=== PATIENT | female | born 1945 | race Caucasian/White ===

== ENCOUNTER → 2016-10-18 | Outpatient (CLI) | payer MEDICARE, OTHER ==
--- NOTE | 2016-10-19 14:54 | MM ---
Reason for exam: screening (asymptomatic). Last mammogram was performed 2 years and 7 months ago. History: Patient is postmenopausal. Benign left mammotome panel of the left breast, March 02, 2009. Excisional biopsy of the left breast, 1989. Excisional biopsy of the left breast, 1974. Physical Findings: A clinical breast exam by your physician is recommended on an annual basis and results should be correlated with mammographic findings. MG 3D Screening Mammo W/Cad Bilateral CC and MLO view(s) were taken. Prior study comparison: March 29, 2014, bilateral MG screening mammo w CAD. February 16, 2013, bilateral digital screening mammo w/CAD. January 24, 2011, CAD bilateral diagnostic mammogram. January 20, 2010, bilateral digital screening mammogram. There are scattered fibroglandular densities. Previous mammotome biopsy in the left breast. No significant changes when compared with prior studies. ASSESSMENT: Negative, BI-RAD 1 RECOMMENDATION: Routine screening mammogram of both breasts in 1 year.
== END | disposition home or self-care (01) ==
LOC: RADMAMWWP 11:19
PROVIDERS: ATTEND Family Medicine
DX: Z12.31 Encounter for screening mammogram for malignant neoplasm of breast (principal)
CPT/HCPCS: 77063; G0202

== ENCOUNTER → 2017-04-15 | Outpatient (CLI) | payer MEDICARE, OTHER ==
[2017-04-15 13:10] LABS: Partial Thromboplastin Time 25.5 sec (22.0-30.0); Prothrombin Time 10.3 sec (9.0-12.0)
--- NOTE | 2017-04-15 13:10 | XR ---
EXAMINATION TYPE: XR chest 2V DATE OF EXAM: 04/15/2017 COMPARISON: NONE HISTORY: Presurgical study. TECHNIQUE: Frontal and lateral views of the chest are obtained. FINDINGS: There is no focal air space opacity, pleural effusion, or pneumothorax seen. The cardiac silhouette size is within normal limits. The osseous structures are intact. IMPRESSION: No acute cardiopulmonary process.
[2017-04-15 13:16] LABS: CHCM 34.7; HCT 44.3 % (34.0-46.0); HDW 2.87; HGB 15.5 gm/dL (11.4-16.0); MCH 30.5 pg (25.0-35.0); MCV 87.1 fL (80.0-100.0); Mean Platelet Volume 6.5; RBC 5.08 m/uL (3.80-5.40); WBC 5.9 k/uL (3.8-10.6)
[2017-04-15 13:19] LABS: ALT 33 U/L (9-52); AST 21 U/L (14-36); Alkaline Phosphatase 76 U/L (38-126); Anion Gap 8 mmol/L; Blood Urea Nitrogen 19 mg/dL (7-17); Calcium 9.2 mg/dL (8.4-10.2); Carbon Dioxide 28 mmol/L (22-30); Chloride 106 mmol/L (98-107); Glucose 105 mg/dL (74-99); Non-African American GFR(MDRD) >60 (>60 ml/min/1.73 sqM); Potassium 4.4 mmol/L (3.5-5.1); Sodium 142 mmol/L (137-145); Total Bilirubin 0.9 mg/dL (0.2-1.3); Total Protein 6.8 g/dL (6.3-8.2)
[2017-04-15 13:36] LABS: Troponin I <0.012 ng/mL (0.000-0.034)
== END | disposition home or self-care (01) ==
LOC: LABWHC1 12:12
PROVIDERS: ATTEND Family Medicine
DX: Z01.818 Encounter for other preprocedural examination (principal); R94.31 Abnormal electrocardiogram [ECG] [EKG]
CPT/HCPCS: 36415; 71020; 80053; 82552; 82553; 84484; 85027; 85610; 85730

== ENCOUNTER → 2017-04-22 | Outpatient (CLI) | payer MEDICARE, OTHER ==
--- NOTE | 2017-04-22 12:32 | P.STRESS ---
- Stress Test Note Stress Test Results/Findings: Exam Performed: NM stress lexiscan cardiolite Exam Date: 04/22/17 Height: 5 ft 4 in Weight: 72.575 kg Protocol: N/A Stage: N/A Duration of Exercise: N/A Resting Heart Rate: 69 Resting Blood Pressure: 114/71 Maximum Achieved Heart Rate: 105 Maximum Achieved Blood Pressure: 127/74 85% PMHR: N/A 100% PMHR: N/A METS: N/A Technologist Comment: Stress Test Results/Findings: Baseline rhythm is sinus mechanism, right bundle branch block. Patient received injection of Lexiscan, EKG monitoring showed no acute changes. Cardiolite was injected per protocol. Impression: 1. Nondiagnostic EKG stress test. 2. Nuclear images will be reported separately.
--- NOTE | 2017-04-22 12:37 | NM ---
EXAMINATION TYPE: NM stress lexiscan cardiolite DATE OF EXAM: 04/22/2017 COMPARISON: NONE HISTORY: Preknee surgery study. History of hypercholesterolemia and family history of heart attack pe r patient. TECHNIQUE: After the intravenous administration of 10.77 mCi Tc 99m Sestamibi - Cardiolite resting S PECT images acquired 45 minutes post injection. The patient received 0.4mg Lexiscan, 27.5 mCi Tc 99m Sestamibi - Stress images obtained [address] injection FINDINGS: Review of stress and rest SPECT images demonstrates no distinct perfusion abnormality. Gated analysi s shows normal wall motion with an estimated left ventricular ejection fraction of 61 %. IMPRESSION: No scintigraphic evidence for reversible ischemia.
== END ==
LOC: RADNMMAIN 08:53
PROVIDERS: ATTEND Family Medicine
DX: Z01.818 Encounter for other preprocedural examination (principal); R94.31 Abnormal electrocardiogram [ECG] [EKG]
CPT/HCPCS: 93017; 78452; A9500

== ENCOUNTER → 2017-10-21 | Outpatient (CLI) | payer MEDICARE, OTHER ==
--- NOTE | 2017-10-22 09:15 | MM ---
Reason for exam: screening (asymptomatic). Last mammogram was performed 1 year ago. History: Patient is postmenopausal. Benign left mammotome panel of the left breast, March 02, 2009. Excisional biopsy of the left breast, 1989. Excisional biopsy of the left breast, 1974. Physical Findings: A clinical breast exam by your physician is recommended on an annual basis and results should be correlated with mammographic findings. MG 3D Screening Mammo W/Cad Bilateral CC and MLO view(s) were taken. Prior study comparison: October 18, 2016, bilateral MG 3d screening mammo w/cad. March 29, 2014, bilateral MG screening mammo w CAD. There are scattered fibroglandular densities. Stable benign calcifications. There is no discrete abnormality. No significant changes when compared with prior studies. ASSESSMENT: Benign, BI-RAD 2 RECOMMENDATION: Routine screening mammogram of both breasts in 1 year.
== END | disposition home or self-care (01) ==
LOC: RADMAMWWP 08:46
PROVIDERS: ATTEND Family Medicine
DX: Z12.31 Encounter for screening mammogram for malignant neoplasm of breast (principal)
CPT/HCPCS: 77063; 77067

== ENCOUNTER → 2018-02-07 | Outpatient (CLI) | payer MEDICARE, OTHER ==
[~2018-02-07] MED LIST: DENOSUMAB 60 MG/ML 1 ML SYRINGE SQ ONE
[2018-02-07 10:57] VITALS: BP 129/76; PULSE 73; RESP 16; TEMP 98.1
== END | disposition home or self-care (01) ==
LOC: PROCWHC3 10:47
PROVIDERS: ATTEND Family Medicine
DX: M81.0 Age-related osteoporosis without current pathological fracture (principal)
CPT/HCPCS: 96372; J0897

== ENCOUNTER → 2019-03-27 | Outpatient (CLI) | payer MEDICARE, OTHER ==
[~2019-03-27] MED LIST changes: +DENOSUMAB 60 MG/ML 1 ML SYRINGE SQ NR; -DENOSUMAB 60 MG/ML 1 ML SYRINGE SQ ONE
[2019-03-27 12:09] VITALS: BP 137/79; PULSE 77; RESP 16; TEMP 97.7
== END | disposition home or self-care (01) ==
LOC: PROCWHC3 12:02
PROVIDERS: ATTEND Family Medicine
DX: M81.0 Age-related osteoporosis without current pathological fracture (principal)
CPT/HCPCS: 96372; J0897

== ENCOUNTER → 2019-04-24 | Outpatient (CLI) | payer MEDICARE, OTHER ==
--- NOTE | 2019-04-27 11:38 | MM ---
Reason for exam: screening (asymptomatic). Last mammogram was performed 1 year and 6 months ago. History: Patient is postmenopausal. Benign left mammotome panel of the left breast, March 02, 2009. Excisional biopsy of the left breast, 1989. Excisional biopsy of the left breast, 1974. Physical Findings: A clinical breast exam by your physician is recommended on an annual basis and results should be correlated with mammographic findings. MG 3D Screening Mammo W/Cad Bilateral CC and MLO view(s) were taken. Prior study comparison: October 21, 2017, bilateral MG 3d screening mammo w/cad. October 18, 2016, bilateral MG 3d screening mammo w/cad. There are scattered fibroglandular densities. Previous mammotome biopsy in the left breast. No significant changes when compared with prior studies. ASSESSMENT: Negative, BI-RAD 1 RECOMMENDATION: Routine screening mammogram of both breasts in 1 year.
== END | disposition home or self-care (01) ==
LOC: RADMAMWWP 13:15
PROVIDERS: ATTEND Family Medicine
DX: Z12.31 Encounter for screening mammogram for malignant neoplasm of breast (principal)
CPT/HCPCS: 77063; 77067

== ENCOUNTER → 2019-10-05 | Outpatient (CLI) | payer MEDICARE, OTHER ==
[~2019-10-05] MED LIST changes: -DENOSUMAB 60 MG/ML 1 ML SYRINGE SQ NR; +DENOSUMAB 60 MG/ML 1 ML SYRINGE SQ ONE
[2019-10-05 12:50] VITALS: BP 146/82; PULSE 64; RESP 16; TEMP 97.5
== END | disposition home or self-care (01) ==
LOC: PROCWHC3 12:42
PROVIDERS: ATTEND Family Medicine
DX: M81.0 Age-related osteoporosis without current pathological fracture (principal)
CPT/HCPCS: 96372; J0897

== ENCOUNTER → 2020-10-14 | Outpatient (CLI) | payer MEDICARE, OTHER ==
[~2020-10-14] MED LIST changes: +DENOSUMAB 60 MG/ML 1 ML SYRINGE SQ NR; -DENOSUMAB 60 MG/ML 1 ML SYRINGE SQ ONE
[2020-10-14 11:38] VITALS: BP 118/74; PULSE 81; RESP 16; TEMP 98.4
== END | disposition home or self-care (01) ==
LOC: PROCWHC3 11:22
PROVIDERS: ATTEND Family Medicine
DX: M81.0 Age-related osteoporosis without current pathological fracture (principal)
CPT/HCPCS: 96372; J0897

== ENCOUNTER → 2020-12-27 | Outpatient (CLI) | payer MEDICARE, OTHER ==
--- NOTE | 2020-12-28 13:42 | MM ---
Reason for exam: screening (asymptomatic). Last mammogram was performed 1 year and 8 months ago. History: Patient is postmenopausal. Benign left mammotome panel of the left breast, March 02, 2009. Excisional biopsy of the left breast, 1989. Excisional biopsy of the left breast, 1974. Physical Findings: A clinical breast exam by your physician is recommended on an annual basis and results should be correlated with mammographic findings. MG 3D Screening Mammo W/Cad Bilateral CC and MLO view(s) were taken. Prior study comparison: April 24, 2019, bilateral MG 3d screening mammo w/cad. October 21, 2017, bilateral MG 3d screening mammo w/cad. There are scattered fibroglandular densities. Previous mammotome biopsy in the left breast. No significant changes when compared with prior studies. ASSESSMENT: Benign, BI-RAD 2 RECOMMENDATION: Routine screening mammogram of both breasts in 1 year.
== END ==
LOC: RADMAMWWP 14:42
PROVIDERS: ATTEND Family Medicine
DX: Z12.31 Encounter for screening mammogram for malignant neoplasm of breast (principal); Z78.0 Asymptomatic menopausal state
CPT/HCPCS: 77063; 77067

== ENCOUNTER → 2021-05-16 | Outpatient (CLI) | payer MEDICARE, OTHER ==
[2021-05-16 12:43] VITALS: BP 107/70; PULSE 82; RESP 16; TEMP 98.1
== END | disposition home or self-care (01) ==
LOC: PROCWHC3 12:30
PROVIDERS: ATTEND Family Medicine
DX: M81.0 Age-related osteoporosis without current pathological fracture (principal)
CPT/HCPCS: 96372; J0897

== ENCOUNTER → 2021-06-28 | Outpatient (CLI) | payer MEDICARE, OTHER ==
--- NOTE | 2021-06-28 21:13 | BD ---
EXAMINATION TYPE: Axial Bone Density DATE OF EXAM: 06/28/2021 COMPARISON: 2014 CLINICAL HISTORY: Postmenopausal screening Height: 63 Weight: 148.0 FRAX RISK QUESTIONS: Alcohol (3 or more units per day): no Family History (Parent hip fracture): no Glucocorticoids (More than 3mos): no (Ex: prednisone, prednisolone, methylprednisolone, dexamethasone, and hydrocortisone). History of Fracture in Adulthood: no Secondary Osteoporosis: 1. Type 1 Diabetes: no 2. Hyperthyroidism: no 3. Menopause before 45: no 4. Malnutrition: no 5. Chronic liver disease: no Rheumatoid Arthritis: no Current Tobacco Use: no RISK FACTORS HISTORY OF: Surgery to Spine/Hip(right/left)/Wrist (right/left): no Family History of Osteoporosis: no Active: yes Diet low in dairy products/other sources of calcium: no Postmenopausal woman: yes Lost more than 2 inches in height since high school: no MEDICATIONS: synthroid- Osteoporosis Medications: Prolia How Lon years Additional Medications: meds for lymphoma, vitamins Additional History: EXAM MEASUREMENTS: Bone mineral densitometry was performed using the [employer]. Bone mineral density as measured about the Lumbar spine is: ----- L1-L4(G/cm2): 1.017 T Score Values are as follows: ----- L2: -2.3 ----- L3: -0.9 ----- L4: -1.0 ----- L1-L4: -1.4 Bone mineral density has: increased 5.2 % since study of: 10.27.2014 Bone mineral density about the R hip (g/cm2): 0.847 Bone mineral density about the L hip (g/cm2): 0.827 T Score values are as follows: -----R Neck: -1.4 -----L Neck: -1.5 -----R Total: -1.1 -----L Total: -1.4 Bone mineral density has: decreased -2.8 % since study of: 10.27.2014 IMPRESSION: Osteopenia (T Score between -2.5 and -1). There is slightly increased risk of fracture and the patient may be considered for treatment. Re-Screen 2-5 years. NOTE: T-SCORE=SD OF THE YOUNG ADULT MEAN.
== END | disposition home or self-care (01) ==
LOC: RADBDWWP 14:20
PROVIDERS: ATTEND Family Medicine
DX: Z13.820 Encounter for screening for osteoporosis (principal); M85.89 Other specified disorders of bone density and structure, multiple sites
CPT/HCPCS: 77080

== ENCOUNTER → 2022-01-02 | Outpatient (CLI) | payer MEDICARE, OTHER ==
[~2022-01-02] MED LIST changes: -DENOSUMAB 60 MG/ML 1 ML SYRINGE SQ NR; +TIXAGEVIMAB/CILGAVIMAB (EUA) 300 MG/3 ML COMBO.PKG IM NR
[2022-01-02 13:37] VITALS: PULSE 62; RESP 16; TEMP 98.1
[2022-01-02 14:51] VITALS: BP 142/78
== END ==
LOC: PROCWHC3 13:05
PROVIDERS: ATTEND Internal Medicine Hematology & Oncology
DX: C85.98 Non-Hodgkin lymphoma, unspecified, lymph nodes of multiple sites (principal); Z87.891 Personal history of nicotine dependence
CPT/HCPCS: Q0220; M0220

== ENCOUNTER 2022-01-11 07:41 | Inpatient (IN) | payer MEDICARE, OTHER ==
--- NOTE | 2022-01-11 08:32 | ED ---
General Adult HPI - General Chief complaint: Skin/Abscess/Foreign Body Stated complaint: post dog bite/infection Time Seen by Provider: 01/11/22 07:52 Source: patient, RN notes reviewed, old records reviewed Mode of arrival: ambulatory Limitations: no limitations - History of Present Illness Initial comments: Patient is a 76-year-old female with past medical history remarkable for lymphoma currently on maintenance therapy presents emergency Department complaining of worsening infection secondary to dog bite. Patient was seen in the urgent care on Saturday following a dog bite. Patient states that she was walking with a group of people picking up trash along the river [place] when a pitbull attack the smaller dog. She attempted to intervene and grabbed this point, which subsequently bit her on the left distal forearm. She states she presented to an outpatient urgent care were she received tetanus prophylaxis. She is uncertain regarding rabies, however believes that since the dog is domesticated and was taken by the national van owner operator to another hospital she does not believe that she requires rabies prophylaxis and thinks the dog is up-to-date on vaccinations. She tended to call the hospitalist to check, however it would not divulge private information. She believes it went to one of the [facility] for recovery. Patient states that since Saturday, when she was placed on Augmentin she has noticed slightly worsening discharge from the wound but some erythema spreading up her arm. She has 1 puncture wound as well as an abrasion. States it is not very painful. Has full range of motion of her arm, wrist, hand. No sensory deficits. Denies any fevers, chills, sick contacts. Has no systemic signs of infection. His no other acute complaint at this time. Believes that she may require IV antibiotics. - Related Data Home Medications Medication Instructions Recorded Confirmed Levothyroxine Sodium [Synthroid] 50 mcg PO DAILY 01/09/16 01/11/22 Omeprazole 20 mg PO Q48H 01/09/16 01/11/22 Denosumab [Prolia] 60 mg SQ Q180D 03/14/16 01/11/22 Amoxic-Pot Clav 875-125Mg 1 tab PO Q12HR 01/11/22 01/11/22 [Augmentin 875-125] Aspirin EC [Ecotrin Low Dose] 81 mg PO DAILY 01/11/22 01/11/22 Biotin 5 mg PO DAILY 01/11/22 01/11/22 Clobetasol Propionate [Clobex .05% 1 applic TOPICAL Q96H 01/11/22 01/11/22 Shampoo] Magnesium Oxide 400 mg PO DAILY 01/11/22 01/11/22 Allergies Allergy/AdvReac Type Severity Reaction Status Date / Time vancomycin Allergy Rash/Hives Verified 01/11/22 09:20 Review of Systems ROS Statement: Those systems with pertinent positive or pertinent negative responses have been documented in the HPI. Review of Systems: CONST: Denies fever EYES: Denies blurry vision ENT: Denies nasal congestion C/V: Denies Chest pain RESP: Denies shortness of breath GI: Denies abdominal pain : Denies dysuria SKIN: Endorses dog bite to the left wrist with spreading erythema. MSK: Denies joint pain. NEURO: Denies headache ROS Other: All systems not noted in ROS Statement are negative. Past Medical History Past Medical History: Cancer, Hyperlipidemia, Thyroid Disorder Additional Past Medical History / Comment(s): kidney stone, lymphoma. History of Any Multi-Drug Resistant Organisms: None Reported Past Surgical History: Section, Orthopedic Surgery, Tubal Ligation Additional Past Surgical History / Comment(s): 2017 Right knee replacement. Follicular lymphoma Past Anesthesia/Blood Transfusion Reactions: No Reported Reaction Past Psychological History: No Psychological Hx Reported Smoking Status: Former smoker Past Alcohol Use History: None Reported Past Drug Use History: None Reported - Past Family History Mother Family Medical History: Cancer Additional Family Medical History / Comment(s): Uterine cancer. General Exam - General Exam Comments Initial Comments: General: Appears in no acute distress. HEAD: Normal with no signs of head trauma. EYES: PERRLA, EOMI, conjunctiva normal, no discharge. ENT: Hearing grossly intact, normal oropharynx. RESPIRATORY: Clear breath sounds bilaterally. No wheezes, rales, or rhonchi. C/V: Regular rate and rhythm. S1 and S2 auscultated, no edema, peripheral pulses 2+ and intact throughout ABD: Abd is soft, nontender, nondistended EXT: Normal range of motion, no obvious deformity SKIN: Patient has a small puncture wound to the anterior aspect of the left distal forearm on the lateral part as well as an abrasion that is approximately the size of a [place] half dollar. Mild bloody mixed with somewhat purulent discharge from both wounds. Spreading of erythema from around the sides proximally up the lateral and anterior aspect of her left forearm. NEURO: Alert and oriented 4. No focal sensory or strength deficits. Full range of motion and neuro vascularly intact distal to the wound. Limitations: no limitations Course Vital Signs 01/11/22 01/11/22 01/11/22 07:45 12:00 15:13 Temperature 97.9 F Pulse Rate 74 59 L 62 Respiratory 18 18 18 Rate Blood Pressure 159/80 128/70 130/68 O2 Sat by Pulse 98 96 96 Oximetry Medical Decision Making - Medical Decision Making Based on the patient's presentation and exam, I believe she is having failed outpatient management of a dog bite. Patient already received tetanus prophylaxis on Saturday upon initial evaluation. She also started on Augmentin outpatient which does not seem to be improving symptoms. She is on maintenance therapy for lymphoma. Uncertain the rabies vaccination status of the dog, however it was domesticated. She does not have the contact information for the national van owner operator. She does know it was sent to [facility] [facility]. She has no other acute complaints at this time. Therefore patient will be admitted for failed outpatient therapy for a dog bite. We will attempt to confirm vaccination status for rabies for the dog. We did recheck her to [facility] which is located in [place], however they were unable to confirm or deny if the dog was present as we are uncertain who the national van owner operator as well as the dog's name. They state it is a HIPPA violation. Patient was started on IV clindamycin and levofloxacin. Wound, blood cultures will be obtained. Basic labs will be obtained. She was in agreement this plan. I will consult her oncologist, Dr. Harris as she is due for maintenance infusion of her medication. Patient's laboratory studies are unremarkable. Patient's x-ray shows soft tissue swelling. On reevaluation, vital signs remained within normal limits and stable. I updated her of results for imaging. Believe it is best to admit the patient for IV antibiotics. She was in agreement this plan. I did discuss with her that I attempted to obtain a be status of the dog, and she states she will attempt to continue to contact the patient's own to find out. She is low suspicion at this time, as the patient is a domesticated dog, and only bit the patient when she intervened to help prevent the dog from being attacked by pitbulls. I spoke with the admitting team under Dr. aguirre who accepted the patient. He requested I consult infectious disease which was done. Patient was therefore a dmitted in stable condition. - Lab Data Result diagrams: 01/11/22 08:53 01/11/22 08:53 Lab Results 01/11/22 01/11/22 Range/Units 08:53 08:53 WBC 4.2 (3.8-10.6) k/uL RBC 4.74 (3.80-5.40) m/uL Hgb 14.3 (11.4-16.0) gm/dL Hct 42.1 (34.0-46.0) % MCV 88.9 (80.0-100.0) fL MCH 30.2 (25.0-35.0) pg MCHC 33.9 (31.0-37.0) g/dL RDW 14.6 (11.5-15.5) % Plt Count 124 L (150-450) k/uL MPV 7.7 Neutrophils % 71 % Lymphocytes % 9 % Monocytes % 10 % Eosinophils % 8 % Basophils % 1 % Neutrophils # 3.0 (1.3-7.7) k/uL Lymphocytes # 0.4 L (1.0-4.8) k/uL Monocytes # 0.4 (0-1.0) k/uL Eosinophils # 0.3 (0-0.7) k/uL Basophils # 0.0 (0-0.2) k/uL Sodium 138 (137-145) mmol/L Potassium 3.9 (3.5-5.1) mmol/L Chloride 109 H (98-107) mmol/L Carbon Dioxide 21 L (22-30) mmol/L Anion Gap 8 mmol/L BUN 22 H (7-17) mg/dL Creatinine 0.71 (0.52-1.04) mg/dL Est GFR (CKD-EPI)AfAm >90 (>60 ml/min/1.73 sqM) Est GFR (CKD-EPI)NonAf 83 (>60 ml/min/1.73 sqM) Glucose 105 H (74-99) mg/dL Calcium 8.6 (8.4-10.2) mg/dL Total Bilirubin 0.8 (0.2-1.3) mg/dL AST 27 (14-36) U/L ALT 23 (4-34) U/L Alkaline Phosphatase 89 (38-126) U/L Total Protein 5.9 L (6.3-8.2) g/dL Albumin 3.5 (3.5-5.0) g/dL Disposition Clinical Impression: Dog bite, Cellulitis Disposition: ADMITTED IP TO THIS [facility] Condition: Stable
[2022-01-11 09:22] LABS: ALT 23 U/L (4-34); AST 27 U/L (14-36); African American GFR (CKD) >90 (>60 ml/min/1.73 sqM); Albumin 3.5 g/dL (3.5-5.0); Alkaline Phosphatase 89 U/L (38-126); Anion Gap 8 mmol/L; Blood Urea Nitrogen 22 mg/dL (7-17); Calcium 8.6 mg/dL (8.4-10.2); Carbon Dioxide 21 mmol/L (22-30); Chloride 109 mmol/L (98-107); Glucose 105 mg/dL (74-99); Non-African American GFR(CKD) 83 (>60 ml/min/1.73 sqM); Potassium 3.9 mmol/L (3.5-5.1); Sodium 138 mmol/L (137-145); Total Bilirubin 0.8 mg/dL (0.2-1.3); Total Protein 5.9 g/dL (6.3-8.2)
[2022-01-11] MEDS ORDERED: NALOXONE 0.4 MG/ML 1 ML VIAL IV PRN (09:25)
--- NOTE | 2022-01-11 09:27 | XR ---
EXAMINATION TYPE: XR forearm LT DATE OF EXAM: 01/11/2022 COMPARISON: NONE HISTORY: 76-year-old female with dogbite distal left arm, pain TECHNIQUE: 2 views FINDINGS: Distal soft tissue swelling is present. No retained radiopaque foreign body. No underlying acute frac ture. IMPRESSION: Distal soft tissue swelling. No acute osseous abnormality seen.
[2022-01-11 09:29] LABS: Basophils % (A) 1 %; Eosinophils # (A) 0.3 k/uL (0-0.7); Eosinophils % (A) 8 %; HCT 42.1 % (34.0-46.0); HGB 14.3 gm/dL (11.4-16.0); Lymphocytes # (A) 0.4 k/uL (1.0-4.8); Lymphocytes % (A) 9 %; MCH 30.2 pg (25.0-35.0); MCHC 33.9 g/dL (31.0-37.0); MCV 88.9 fL (80.0-100.0); Mean Platelet Volume 7.7; Monocytes # (A) 0.4 k/uL (0-1.0); Monocytes % (A) 10 %; Neutrophils % (A) 71 %; Platelet Count 124 k/uL (150-450); RBC 4.74 m/uL (3.80-5.40); RDW 14.6 % (11.5-15.5); WBC 4.2 k/uL (3.8-10.6)
[2022-01-11] MEDS ORDERED: LEVOFLOXACIN 500MG-D5W PMX 500 MG in DEXTROSE/WATER 1 100ML.BAG IVPB ONE (10:00)
[2022-01-11] MEDS ORDERED: CLINDAMYCIN 450 MG in DEXTROSE 5% IN WATER 50 ML IVPB SCH ×2 (11:00)
[2022-01-11] MEDS: AMPICILLIN-SULBACTAM 3 GM in SODIUM CHLORIDE 0.9% 100 ML IVPB SCH ×2 (17:49→23:39)
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
[2022-01-12] MEDS: AMPICILLIN-SULBACTAM 3 GM in SODIUM CHLORIDE 0.9% 100 ML IVPB SCH ×4 (05:23→23:16)
[2022-01-12] MEDS ORDERED: LEVOFLOXACIN 500MG-D5W PMX 500 MG in DEXTROSE/WATER 1 100ML.BAG IVPB SCH (09:00)
[2022-01-12 10:26] LABS: Basophils # (A) 0.07 X 10*3/uL (0.00-0.10); Basophils % (A) 1.9 %; Eosinophils # (A) 0.38 X 10*3/uL (0.04-0.35); Eosinophils % (A) 10.5 %; HGB 13.7 g/dL (12.0-15.0); Immature Grans, Automated 1.4 %; Lymphocytes # (A) 0.31 X 10*3/uL (0.90-5.00); Lymphocytes % (A) 8.6 %; MCHC 33.4 g/dL (32.0-37.0); MCV 89.7 fL (80.0-97.0); Mean Platelet Volume 9.6 fL (9.5-12.2); Monocytes # (A) 0.47 X 10*3/uL (0.20-1.00); NRBC Per 100 WBC 0 /100 WBCS (0.0-0.0); Neutrophils # (A) 2.34 X 10*3/uL (1.80-7.70); Neutrophils % (A) 64.6 %; Platelet Count 125 X 10*3/uL (140-440); RBC 4.57 X 10*6/uL (4.10-5.20); RDW 14.6 % (11.5-14.5); WBC 3.62 X 10*3/uL (4.50-10.00)
[2022-01-12 10:47] LABS: African American GFR (CKD) 97.5 (60.0-200.0); Anion Gap 9.1 mmol/L (10.00-18.00); BUN/Creat Ratio 26.57 Ratio (12.00-20.00); Blood Urea Nitrogen 18.6 mg/dL (9.0-27.0); C Reactive Protein 0.4 mg/dL (0.00-0.80); Calcium 8.9 mg/dL (8.7-10.3); Carbon Dioxide 24.9 mmol/L (20.0-27.5); Non-African American GFR(CKD) 84.2 (60.0-200.0); Potassium 3.8 mmol/L (3.5-5.5)
[2022-01-12] MEDS: ACETAMINOPHEN TAB 325 MG TAB PO PRN ×2 (12:45→19:12)
--- NOTE | 2022-01-12 13:27 | P.HPIM ---
History of Present Illness H&P Date: 01/11/22 Chief Complaint: dog bite/infection 76-year-old female with past medical history remarkable for lymphoma currently on maintenance therapy presents emergency Department complaining of worsening infection secondary to dog bite. Patient was seen in the urgent care on Saturday following a dog bite. Patient states that she was walking with a group of people [place] up trash along the river [place] when a pitbull attack the smaller dog. She attempted to intervene and grabbed this point, which subsequently bit her on the left distal forearm. She states she presented to an outpatient urgent care were she received tetanus prophylaxis. She is uncertain regarding rabies, however believes that since the dog is domesticated and was taken by the light coil winder to another hospital she does not believe that she requires rabies prophylaxis and thinks the dog is up-to-date on vaccinations. She tended to call the hospitalist to check, however it would not divulge private in formation. She believes it went to one of the [facility] for recovery. Patient states that since Saturday, when she was placed on Augmentin she has noticed slightly worsening discharge from the wound but some erythema spreading up her arm. She has 1 puncture wound as well as an abrasion. States it is not very painful. Has full range of motion of her arm, wrist, hand. No sensory deficits. Denies any fevers, chills, sick contacts. Has no systemic signs of infection. His no other acute complaint at this time. Believes that she may require IV antibiotics. Review of Systems REVIEW OF SYSTEMS: CONSTITUTIONAL: No fever, no malaise, no fatigue. HEENT: No recent visual problems or hearing problems. Denied any sore throat. CARDIOVASCULAR: No chest pain, orthopnea, PND, no palpitations, no syncope. PULMONARY: No shortness of breath, no cough, no hemoptysis. GASTROINTESTINAL: No diarrhea, no nausea, no vomiting, no abdominal pain. NEUROLOGICAL: No headaches, no weakness, no numbness. HEMATOLOGICAL: Denies any bleeding or petechiae. GENITOURINARY: Denies any burning micturition, frequency, or urgency. MUSCULOSKELETAL/RHEUMATOLOGICAL: Denies any joint pain, swelling, or any muscle pain. ENDOCRINE: Denies any polyuria or polydipsia. The rest of the 14-point review of systems is negative. Past Medical History Past Medical History: Cancer, Hyperlipidemia, Thyroid Disorder Additional Past Medical History / Comment(s): kidney stone, lymphoma. History of Any Multi-Drug Resistant Organisms: None Reported Past Surgical History: Section, Orthopedic Surgery, Tubal Ligation Additional Past Surgical History / Comment(s): 2017 Right knee replacement. Follicular lymphoma Past Anesthesia/Blood Transfusion Reactions: No Reported Reaction Past Psychological History: No Psychological Hx Reported Smoking Status: Former smoker Past Alcohol Use History: None Reported Past Drug Use History: None Reported - Past Family History Mother Family Medical History: Cancer Additional Family Medical History / Comment(s): Uterine cancer. Medications and Allergies Home Medications Medication Instructions Recorded Confirmed Type Levothyroxine Sodium [Synthroid] 50 mcg PO DAILY 01/09/16 01/11/22 History Omeprazole 20 mg PO Q48H 01/09/16 01/11/22 History Denosumab [Prolia] 60 mg SQ Q180D 03/14/16 01/11/22 History Amoxic-Pot Clav 875-125Mg 1 tab PO Q12HR 01/11/22 01/11/22 History [Augmentin 875-125] Aspirin EC [Ecotrin Low Dose] 81 mg PO DAILY 01/11/22 01/11/22 History Biotin 5 mg PO DAILY 01/11/22 01/11/22 History Clobetasol Propionate [Clobex .05% 1 applic TOPICAL Q96H 01/11/22 01/11/22 History Shampoo] Lenalidomide [Revlimid] 20 mg PO DAILY 01/11/22 01/11/22 History Magnesium Oxide 400 mg PO DAILY 01/11/22 01/11/22 History Allergies Allergy/AdvReac Type Severity Reaction Status Date / Time vancomycin Allergy Rash/Hives Verified 01/11/22 09:20 Physical Exam Vitals: Vital Signs Temp Pulse Resp BP Pulse Ox 01/11/22 12:00 59 L 18 128/70 96 01/11/22 07:45 97.9 F 74 18 159/80 98 Intake and Output 01/10/22 01/11/22 01/11/22 22:59 06:59 14:59 Other: Weight 74.843 kg GENERAL DESCRIPTION: An elderly female lying in bed, no distress. No tachypnea or accessory muscle of respiration use. HEENT: Shows Pallor , no scleral icterus. Oral mucous membrane is dry. No pharyngeal erythema or thrush NECK: Trachea central, no thyromegaly. LUNGS: Unlabored breathing. Clear to auscultation anteriorly. No wheeze or crackle. HEART: S1, S2, regular rate and rhythm. No loud murmur ABDOMEN: Soft, no tenderness , guarding or rigidity, no organomegaly EXTREMITIES: Left upper extremity did have a laceration from the department which has been Steri-Stripped with some minimal bruising to the left forearm mildly warm to touch. SKIN: No rash, no masses palpable. NEUROLOGICAL: The patient is awake, alert, oriented x3, mood and affect normal. Results CBC & Chem 7: 01/12/22 06:32 01/12/22 06:32 Labs: Abnormal Lab Results - Last 24 Hours (Table) 01/11/22 01/11/22 Range/Units 08:53 08:53 Plt Count 124 L (150-450) k/uL Lymphocytes # 0.4 L (1.0-4.8) k/uL Chloride 109 H (98-107) mmol/L Carbon Dioxide 21 L (22-30) mmol/L BUN 22 H (7-17) mg/dL Glucose 105 H (74-99) mg/dL Total Protein 5.9 L (6.3-8.2) g/dL Assessment and Plan Assessment: Dog bite/cellulitis left forearm - Patient reports worsening redness and swelling - Lab review shows WBC to be within normal limit; patient remains afebrile; patient has been placed on IV Levaquin and clindamycin; consult ID for further recommendations 2. Hyperlipidemia; currently not on statin therapy 3. Hypothyroidism; with thyroxine 50 MCG daily 4. Lymphoma; continue with outpatient treatment 5. Gastroesophageal reflux disease/gastritis; Protonix 40 mg daily DVT prophylaxis; SCDs CODE STATUS; full code
[2022-01-12] MEDS ORDERED: DENOSUMAB 60 MG/ML 1 ML SYRINGE SQ SCH (13:30)
[2022-01-12] MEDS: PANTOPRAZOLE 40 MG TABLET PO SCH (14:21)
[2022-01-12] MEDS: LENALIDOMIDE 20 MG PO SCH (18:19)
--- NOTE | 2022-01-12 19:08 | P.CONS ---
History of Present Illness - Reason for Consult Consult date: 01/12/22 - History of Present Illness Ms Shea is a pleasant white female, with overall fairly minor and well- controlled medical problems and baseline. The patient was initially admitted to [facility] in early 04/26 with complains of progressive weakness, dizziness and lightheadedness on exertion and shortness of breath on exertion. Chest x-ray showed a large left pleural effusion. CT of the chest on 04/14/21 rev ealed a large left-sided pleural effusion occupying more than 50% of the left lung volume. The mediastinum was not well evaluated due to lack of contrast but there appeared to be retroperitoneal adenopathy measuring up to 2.7 cm. The patient had pleural fluid drained on 04/17/21 that was negative for malignancy, including lymphoma and flow cytometric. However the fluid appeared to be chylous. CT chest abdomen and pelvis with contrast on 04/21/21 showed multiple enlarged mediastinal nodes in the superior, AP window, paratracheal, subcarinal and retrocrural regions. The patient had a PET scan as an outpatient on 04/25/21 that showed multiple areas of increased uptake including left lobe of the thyroid, mediastinal nodes, retrocrural nodes. Lymphoscintigram on 04/26/21 did not show radiotracer accumulation in the left-sided effusion. The patient was referred to thoracic surgery, Dr. Chavez, and had widespread procedure, lymph node biopsy and insertion of Pleurex catheter on 04/26/21. She was then discharged but readmitted in early 05/27 for redness around the catheter insertion site which subsequently was found to be due to reaction to her bandage. Pleural biopsy was negative. 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 Patient was then referred here for further evaluation and recommendations. She denied any prior history of malignancy or blood related problems. She has lost about 15 pounds since the onset of her symptoms. Respiratory status is fairly well maintained with drainage of fluid every other day. She states that volume is approximately 1 L each time. She has not noted any palpable adenopathy. The patient was recommended treatment with standard bendamustine plus Obinutuzumab regimen. She decided to get a second opinion at the [facility] in [place]. They recommended another standard first-line regimen specifically Revlimid and Rituxan. Detailed discussion in the office, the patient was quite definite that she wanted to try the R2 regimen. She started the same on 06/08/21. She completed cycle #8 of Revlimid, and s/p 8 cycles of Rituxan ( the last been on 11/02/21) She denied any fevers/chills/nausea/vomiting. chest tube was able to be removed in late 08/27 as drainage had essentially ceased. She had a hospitalization in early 06/27, a cause of increased shortness of breath, which improved after withdrawal of an additional 1-1.5 L. She last seen Dr. Harris on the patient has completed 8 cycles of the R-are regimen with very good tolerance and good response. Her CBC is normal. - Check labs - The patient was advised that typically she would be placed on maintenance Rituxan every 2 months for 2 years. This has been shown to significantly prolong progression free survival for follicular lymphoma though overall elsy vival is not affected. Currently there is some controversy about maintenance Rituxan, in the setting of the ongoing pandemic as to whether it can increase risk of coronavirus infection. On the other hand degree of increased risk in addition to that from the initial induction treatment is unknown. It is also not known if the risk of earlier relapse without maintenance treatment outweighs the risk of COVID infection. - the patient was thus referred for a second opinion regarding maintenance crispin atment. She has been admitted for worsening infection that resulted from a dog bite. On Saturday when she was trying to break up a fight between two dogs, resulting in wound on left forearm. She was seen at a walk-in clinic patient received tetanus prophylaxis she was started on Augmentin. She presented when this increased in pain, swelling and erythema. Infectious disease is following. Review of Systems All systems: negative Constitutional: Reports as per HPI Past Medical History Past Medical History: Cancer, Hyperlipidemia, Thyroid Disorder Additional Past Medical History / Comment(s): kidney stone, lymphoma. History of Any Multi-Drug Resistant Organisms: None Reported Past Surgical History: Section, Orthopedic Surgery, Tubal Ligation Additional Past Surgical History / Comment(s): 2017 Right knee replacement. Follicular lymphoma Past Anesthesia/Blood Transfusion Reactions: No Reported Reaction Past Psychological History: No Psychological Hx Reported Smoking Status: Former smoker Past Alcohol Use History: None Reported Past Drug Use History: None Reported - Past Family History Mother Family Medical History: Cancer Additional Family Medical History / Comment(s): Uterine cancer. Medications and Allergies Home Medications Medication Instructions Recorded Confirmed Type Levothyroxine Sodium [Synthroid] 50 mcg PO DAILY 01/09/16 01/11/22 History Omeprazole 20 mg PO Q48H 01/09/16 01/11/22 History Denosumab [Prolia] 60 mg SQ Q180D 03/14/16 01/11/22 History Amoxic-Pot Clav 875-125Mg 1 tab PO Q12HR 01/11/22 01/11/22 History [Augmentin 875-125] Aspirin EC [Ecotrin Low Dose] 81 mg PO DAILY 01/11/22 01/11/22 History Biotin 5 mg PO DAILY 01/11/22 01/11/22 History Clobetasol Propionate [Clobex .05% 1 applic TOPICAL Q96H 01/11/22 01/11/22 History Shampoo] Lenalidomide [Revlimid] 20 mg PO DAILY 01/11/22 01/11/22 History Magnesium Oxide 400 mg PO DAILY 01/11/22 01/11/22 History Allergies Allergy/AdvReac Type Severity Reaction Status Date / Time vancomycin Allergy Rash/Hives Verified 01/11/22 09:20 Physical Exam Vitals: Vital Signs Temp Pulse Resp BP Pulse Ox 01/12/22 13:13 97.6 F 60 12 143/80 97 01/12/22 07:49 97.6 F 69 12 144/82 95 01/12/22 06:06 107/67 01/12/22 05:10 97.8 F 71 20 95 01/11/22 20:25 98.3 F 64 20 143/78 95 Intake and Output 01/12/22 01/12/22 01/12/22 06:59 14:59 22:59 Intake Total 2 658 200 Balance 2 658 200 Intake: Intake, IV Titration 200 Amount Ampicillin-Sulbactam 3 gm 200 In Sodium Chloride 0.9% 100 ml @ 200 mls/hr IVPB Q6HR [facility] Rx#:[id number] Oral 2 658 Other: Voiding Method Toilet # Voids 1 3 - Constitutional General appearance: cooperative - EENT Eyes: EOMI, PERRLA ENT: NA/AT - Neck Neck: normal ROM - Respiratory Respiratory: bilateral: CTA - Cardiovascular Rhythm: regular - Gastrointestinal General gastrointestinal: normal bowel sounds, soft - Integumentary Left FOrearm wound is bandaged, CDI Integumentary: normal - Neurologic Neurologic: CNII-XII intact - Musculoskeletal Musculoskeletal: generalized weakness - Psychiatric Psychiatric: A&O x's 3, appropriate affect, intact judgment & insight Results CBC & Chem 7: 01/12/22 06:32 01/12/22 06:32 Labs: Abnormal Lab Results - Last 24 Hours (Table) 01/12/22 01/12/22 Range/Units 06:32 06:32 WBC 3.62 L (4.50-10.00) X 10*3/uL RDW 14.6 H (11.5-14.5) % Plt Count 125 L (140-440) X 10*3/uL Immature Gran # 0.05 H (0.00-0.04) X 10*3/uL Lymphocytes # 0.31 L (0.90-5.00) X 10*3/uL Eosinophils # 0.38 H (0.04-0.35) X 10*3/uL Anion Gap 9.10 L (10.00-18.00) mmol/L BUN/Creatinine Ratio 26.57 H (12.00-20.00) Ratio Microbiology - Last 24 Hours (Table) 01/11/22 08:45 Blood Culture - Preliminary Blood No Growth after 24 hours 01/11/22 08:30 Blood Culture - Preliminary Blood No Growth after 24 hours 01/11/22 08:41 Gram Stain - Preliminary Arm - Left Wound Culture - Preliminary 01/11/22 08:41 Anaerobic Culture - Preliminary Arm - Left Assessment and Plan (1) Lymphoma Narrative/Plan: Maintenance rituxan and will follow up with Dr. Harris after hospital stay. Monitor CBC with active infection Current Visit: Yes Status: Acute Code(s): C85.90 - NON-HODGKIN LYMPHOMA, UNSPECIFIED, UNSPECIFIED SITE SNOMED Code(s): 122465074 (2) Cellulitis Narrative/Plan: ID is following and managing antibiotics Current Visit: Yes Status: Acute Code(s): L03.90 - CELLULITIS, UNSPECIFIED SNOMED Code(s): 013444904 (3) Dog bite Current Visit: Yes Status: Acute Code(s): W54.0XXA - BITTEN BY DOG, INITIAL ENCOUNTER SNOMED Code(s): 300856813 Plan: Dr. Amin: I have completed the full history and physical and developed the above impression and plan. agree with above dictation, dictated as a ascribe.
--- NOTE | 2022-01-12 23:43 | P.PN ---
Subjective Progress Note Date: 01/12/22 Principal diagnosis: Left forearm dog bite cellulitis Patient is a 76 year female presenting to the hospital with increasing swelling redness to left forearm after a dog bite. On today's evaluation that is 01/12/2022, the patient denies having any fever or any chills, the patient overall pain and discomfort to the left arm slightly decreased redness has decreased in intensity no drainage no chest pain shortness of breath or cough no abdominal pain no diarrhea Objective - Vital Signs Vital signs: Vital Signs Temp 97.6 F 01/12/22 13:13 Pulse 60 01/12/22 13:13 Resp 12 01/12/22 13:13 BP 143/80 01/12/22 13:13 Pulse Ox 97 01/12/22 13:13 Intake & Output 01/11/22 01/12/22 01/12/22 18:59 06:59 18:59 Intake Total 100 102 298 Balance 100 102 298 Weight 74.843 kg Intake: Intake, IV Titration 100 Amount Ampicillin-Sulbactam 3 gm 100 In Sodium Chloride 0.9% 100 ml @ 200 mls/hr IVPB Q6HR [facility] Rx#:[id number] Oral 102 298 Other: Voiding Method Toilet # Voids 1 1 - Exam GENERAL DESCRIPTION: An elderly female lying in bed in no distress RESPIRATORY SYSTEM: Unlabored breathing , decreased breath sounds at bases HEART: S1 S2 regular rate and rhythm , ABDOMEN: Soft , no tenderness EXTREMITIES: Left forearm wound is dressed no drainage with dressings surroundi ng redness has decreased - Labs CBC & Chem 7: 01/12/22 06:32 01/12/22 06:32 Labs: Abnormal Lab Results - Last 24 Hours (Table) 01/12/22 01/12/22 Range/Units 06:32 06:32 WBC 3.62 L (4.50-10.00) X 10*3/uL RDW 14.6 H (11.5-14.5) % Plt Count 125 L (140-440) X 10*3/uL Immature Gran # 0.05 H (0.00-0.04) X 10*3/uL Lymphocytes # 0.31 L (0.90-5.00) X 10*3/uL Eosinophils # 0.38 H (0.04-0.35) X 10*3/uL Anion Gap 9.10 L (10.00-18.00) mmol/L BUN/Creatinine Ratio 26.57 H (12.00-20.00) Ratio Microbiology - Last 24 Hours (Table) 01/11/22 08:45 Blood Culture - Preliminary Blood No Growth after 24 hours 01/11/22 08:30 Blood Culture - Preliminary Blood No Growth after 24 hours 01/11/22 08:41 Gram Stain - Preliminary Arm - Left Wound Culture - Preliminary 01/11/22 08:41 Anaerobic Culture - Preliminary Arm - Left Assessment and Plan (1) Cellulitis Current Visit: Yes Status: Acute Code(s): L03.90 - CELLULITIS, UNSPECIFIED SNOMED Code(s): 403932880 (2) Dog bite Current Visit: Yes Status: Acute Code(s): W54.0XXA - BITTEN BY DOG, INITIAL ENCOUNTER SNOMED Code(s): 390218027 Plan: 1patient with left forearm dog bite cellulitis in this patient was in the hospital a slight worsening of swelling and redness to the left forearm which is mostly bruising possible related to the trauma rather than worsening cellulitis as the patient not running a fever and white count is normal. 2patient to continue with Unasyn 3 g every 6 hours in view of clinical response Time with Patient: Less than 30
[2022-01-13] MEDS: ACETAMINOPHEN TAB 325 MG TAB PO PRN ×3 (02:30→20:53)
[2022-01-13] MEDS: AMPICILLIN-SULBACTAM 3 GM in SODIUM CHLORIDE 0.9% 100 ML IVPB SCH ×4 (06:05→23:36)
[2022-01-13] MEDS: LEVOTHYROXINE 50 MCG TAB PO SCH (06:05)
[2022-01-13] MEDS: LENALIDOMIDE 20 MG PO SCH (08:09)
[2022-01-13] MEDS: ASPIRIN 81 MG PO SCH (08:09)
[2022-01-13] MEDS: MAGNESIUM OXIDE 400 MG TAB PO SCH (08:09)
[2022-01-13] MEDS ORDERED: NON FORMULARY DRUG (Lenalidomide [Revlimid] 20 MG Capsule) PO SCH (09:00)
[2022-01-13] MEDS ORDERED: NON FORMULARY DRUG (Biotin [Biotin] 5 MG Capsule) PO SCH (09:00)
--- NOTE | 2022-01-13 16:30 | P.PN ---
Subjective Progress Note Date: 01/13/22 Principal diagnosis: Left forearm dog bite cellulitis Patient is a 76 year female presenting to the hospital with increasing swelling redness to left forearm after a dog bite. On today's evaluation that is 01/13/2022, the patient remains to be afebrile, the patient pain and discomfort to the left arm slightly decreased redness has decreased in intensity , there is no drainage no chest pain shortness of breath or cough no abdominal pain no diarrhea Objective - Vital Signs Vital signs: Vital Signs Temp 98.0 F 01/13/22 14:15 Pulse 69 01/13/22 14:15 Resp 16 01/13/22 14:15 BP 118/71 01/13/22 14:15 Pulse Ox 95 01/13/22 14:15 Intake & Output 01/12/22 01/13/22 01/13/22 18:59 06:59 18:59 Intake Total 858 200 Balance 858 200 Intake: Intake, IV Titration 200 200 Amount Ampicillin-Sulbactam 3 gm 200 200 In Sodium Chloride 0.9% 100 ml @ 200 mls/hr IVPB Q6HR [facility] Rx#:[id number] Oral 658 Other: Voiding Method Toilet Toilet # Voids 3 - Exam GENERAL DESCRIPTION: An elderly female lying in bed in no distress RESPIRATORY SYSTEM: Unlabored breathing , decreased breath sounds at bases HEART: S1 S2 regular rate and rhythm , ABDOMEN: Soft , no tenderness EXTREMITIES: Left forearm wound is dressed no drainage with dressings surrounding redness has decreased - Labs CBC & Chem 7: 01/12/22 06:32 01/12/22 06:32 Labs: Microbiology - Last 24 Hours (Table) 01/11/22 08:41 Anaerobic Culture - Preliminary Arm - Left 01/11/22 08:45 Blood Culture - Preliminary Blood No Growth after 48 hours 01/11/22 08:30 Blood Culture - Preliminary Blood No Growth after 48 hours 01/11/22 08:41 Gram Stain - Final Arm - Left Wound Culture - Final Assessment and Plan (1) Cellulitis Current Visit: Yes Status: Acute Code(s): L03.90 - CELLULITIS, UNSPECIFIED SNOMED Code(s): 373759675 (2) Dog bite Current Visit: Yes Status: Acute Code(s): W54.0XXA - BITTEN BY DOG, INITIAL ENCOUNTER SNOMED Code(s): 498822155 Plan: 1patient with left forearm dog bite cellulitis in this patient was in the hospital a slight worsening of swelling and redness to the left forearm which is mostly bruising possible related to the trauma rather than worsening cellulitis as the patient not running a fever and white count is normal. 2patient seemed to have clinically improved with Unasyn 3 g every 6 hours which will be continued with a plan to finish therapy with oral Augmentin Time with Patient: Less than 30
[2022-01-14] MEDS: LEVOTHYROXINE 50 MCG TAB PO SCH (05:27)
[2022-01-14] MEDS: AMPICILLIN-SULBACTAM 3 GM in SODIUM CHLORIDE 0.9% 100 ML IVPB SCH ×4 (05:27→23:18)
[2022-01-14] MEDS: MAGNESIUM OXIDE 400 MG TAB PO SCH (09:09)
[2022-01-14] MEDS: ASPIRIN 81 MG PO SCH (09:09)
[2022-01-14] MEDS: LENALIDOMIDE 20 MG PO SCH (09:09)
[2022-01-14] MEDS: ACETAMINOPHEN TAB 325 MG TAB PO PRN ×3 (09:10→22:06)
[2022-01-14] MEDS: PANTOPRAZOLE 40 MG TABLET PO SCH (12:16)
--- NOTE | 2022-01-14 17:01 | P.PN ---
Subjective Progress Note Date: 01/13/22 Principal diagnosis: Dog bite/cellulitis left forearm 76-year-old female with past medical history remarkable for lymphoma currently on maintenance therapy presents emergency Department complaining of worsening infection secondary to dog bite. Patient was seen in the urgent care on Saturday following a dog bite. Patient states that she was walking with a group of people picking up trash along the river walking [place] when a pitbull attack the smaller dog. She attempted to intervene and grabbed this point, which subsequently bit her on the left distal forearm. She states she presented to an outpatient urgent care were she received tetanus prophylaxis. She is uncertain regarding rabies, however believes that since the dog is domesticated and was taken by the perinatology physician to another hospital she does not believe that she requires rabies prophylaxis and thinks the dog is up-to-date on vaccinations. She tended to call the hospitalist to check, however it would not divulge private information. She believes it went to one of the [facility] for recovery. Patient states that since Saturday, when she was placed on Augmentin she has noticed slightly worsening discharge from the wound but some erythema spreading up her arm. She has 1 puncture wound as well as an abrasion. States it is not very painful. Has full range of motion of her arm, wrist, hand. No sensory deficits. Denies any fevers, chills, sick contacts. Has no systemic signs of infection. His no other acute complaint at this time. Believes that she may require IV antibiotics. Objective - Vital Signs Vital signs: Vital Signs Temp 98.0 F 01/13/22 14:15 Pulse 69 01/13/22 14:15 Resp 16 01/13/22 14:15 BP 118/71 01/13/22 14:15 Pulse Ox 95 01/13/22 14:15 Intake & Output 01/12/22 01/13/22 01/13/22 18:59 06:59 18:59 Intake Total 858 200 Balance 858 200 Intake: Intake, IV Titration 200 200 Amount Ampicillin-Sulbactam 3 gm 200 200 In Sodium Chloride 0.9% 100 ml @ 200 mls/hr IVPB Q6HR [facility] Rx#:[id number] Oral 658 Other: Voiding Method Toilet Toilet # Voids 3 - Exam GENERAL DESCRIPTION: An elderly female lying in bed, no distress. No tachypnea or accessory muscle of respiration use. HEENT: Shows Pallor , no scleral icterus. Oral mucous membrane is dry. No pharyngeal erythema or thrush NECK: Trachea central, no thyromegaly. LUNGS: Unlabored breathing. Clear to auscultation anteriorly. No wheeze or crackle. HEART: S1, S2, regular rate and rhythm. No loud murmur ABDOMEN: Soft, no tenderness , guarding or rigidity, no organomegaly EXTREMITIES: Left upper extremity did have a laceration from the department which has been Steri-Stripped with some minimal bruising to the left forearm mildly warm to touch. SKIN: No rash, no masses palpable. NEUROLOGICAL: The patient is awake, alert, oriented x3, mood and affect normal. - Labs CBC & Chem 7: 01/12/22 06:32 01/12/22 06:32 Labs: Microbiology - Last 24 Hours (Table) 01/11/22 08:41 Anaerobic Culture - Preliminary Arm - Left 01/11/22 08:45 Blood Culture - Preliminary Blood No Growth after 48 hours 01/11/22 08:30 Blood Culture - Preliminary Blood No Growth after 48 hours 01/11/22 08:41 Gram Stain - Final Arm - Left Wound Culture - Final Assessment and Plan Assessment: Dog bite/cellulitis left forearm - Patient reports worsening redness and swelling - Lab review shows WBC to be within normal limit; patient remains afebrile; patient has been placed on IV Levaquin and clindamycin; consult ID for further recommendations 2. Hyperlipidemia; currently not on statin therapy 3. Hypothyroidism; with thyroxine 50 MCG daily 4. Lymphoma; continue with outpatient treatment 5. Gastroesophageal reflux disease/gastritis; Protonix 40 mg daily DVT prophylaxis; SCDs CODE STATUS; full code
--- NOTE | 2022-01-14 17:03 | P.PN ---
Subjective Progress Note Date: 01/14/22 Principal diagnosis: Dog bite/cellulitis left forearm 76-year-old female with past medical history remarkable for lymphoma currently on maintenance therapy presents emergency Department complaining of worsening infection secondary to dog bite. Patient was seen in the urgent care on Saturday following a dog bite. Patient states that she was walking with [place] group of people [place] when a pitbull attack the smaller dog. She attempted to intervene and grabbed this point, which subsequently bit her on the left distal forearm. She states she presented to an outpatient urgent care were she received tetanus prophylaxis. She is uncertain regarding rabies, however believes that since the dog is domesticated and was taken by the balance recesser to another hospital she does not believe that she requires rabies prophylaxis and thinks the dog is up-to-date on vaccinations. She tended to call the hospitalist to check, however it would not divulge private information. She believes it went to one of the [facility] for recovery. Patient states that since Saturday, when she was placed on Augmentin she has noticed slightly worsening discharge from the wound but some erythema spreading up her arm. She has 1 puncture wound as well as an abrasion. States it is not very painful. Has full range of motion of her arm, wrist, hand. No sensory deficits. Denies any fevers, chills, sick contacts. Has no systemic signs of infection. His no other acute complaint at this time. Believes that she may require IV antibiotics. 01/14/2022 Patient is seen and evaluated sitting up in bed; denies any complaints of fever or chills; reports marked improvement in swelling and redness of left forearm Vital signs are reviewed and patient remains afebrile Currently on IV Unasyn 3 g every 6 hours; ID recommending to continue with IV antibiotics for another 24 hours with plans to switch to oral Augmentin if clinically remained stable Oncology on board for recommendations on current treatment for lymphoma; patient will continue Rituxan and follow-up with oncology as an outpatient Objective - Vital Signs Vital signs: Vital Signs Temp 98.6 F 01/14/22 11:11 Pulse 66 01/14/22 11:11 Resp 18 01/14/22 11:11 BP 123/75 01/14/22 11:11 Pulse Ox 95 01/14/22 11:11 Intake & Output 01/13/22 01/14/22 01/14/22 18:59 06:59 18:59 Intake Total 200 200 Balance 200 200 Intake: Intake, IV Titration 200 200 Amount Ampicillin-Sulbactam 3 gm 200 200 In Sodium Chloride 0.9% 100 ml @ 200 mls/hr IVPB Q6HR [facility] Rx#:[id number] Other: Voiding Method Toilet Toilet # Voids 2 - Exam GENERAL DESCRIPTION: An elderly female lying in bed, no distress. No tachypnea or accessory muscle of respiration use. HEENT: Shows Pallor , no scleral icterus. Oral mucous membrane is dry. No pharyngeal erythema or thrush NECK: Trachea central, no thyromegaly. LUNGS: Unlabored breathing. Clear to auscultation anteriorly. No wheeze or crackle. HEART: S1, S2, regular rate and rhythm. No loud murmur ABDOMEN: Soft, no tenderness , guarding or rigidity, no organomegaly EXTREMITIES: Left upper extremity did have a laceration from the department which has been Steri-Stripped with some minimal bruising to the left forearm mildly warm to touch. SKIN: No rash, no masses palpable. NEUROLOGICAL: The patient is awake, alert, oriented x3, mood and affect normal. - Labs CBC & Chem 7: 01/12/22 06:32 01/12/22 06:32 Labs: Microbiology - Last 24 Hours (Table) 01/11/22 08:30 Blood Culture - Preliminary Blood No Growth after 72 hours 01/11/22 08:45 Blood Culture - Preliminary Blood No Growth after 72 hours 01/11/22 08:41 Anaerobic Culture - Preliminary Arm - Left 01/11/22 08:41 Gram Stain - Final Arm - Left Wound Culture - Final Assessment and Plan Assessment: Dog bite/cellulitis left forearm - Patient reports worsening redness and swelling - Lab review shows WBC to be within normal limit; patient remains afebrile; patient has been placed on IV Levaquin and clindamycin; consult ID for further recommendations 2. Hyperlipidemia; currently not on statin therapy 3. Hypothyroidism; with thyroxine 50 MCG daily 4. Lymphoma; continue with outpatient treatment 5. Gastroesophageal reflux disease/gastritis; Protonix 40 mg daily DVT prophylaxis; SCDs CODE STATUS; full code
--- NOTE | 2022-01-14 23:19 | P.PN ---
Subjective Progress Note Date: 01/14/22 Principal diagnosis: Left forearm dog bite cellulitis Patient is a 76 year female presenting to the hospital with increasing swelling redness to left forearm after a dog bite. On today's evaluation that is 01/14/2022, the patient denies any fever or any chills, the patient pain and discomfort to the left arm has decreased in intensity as well as the redness , patient denies drainage no chest pain shortness of breath or cough no abdominal pain no diarrhea Objective - Vital Signs Vital signs: Vital Signs Temp 98.6 F 01/14/22 11:11 Pulse 66 01/14/22 11:11 Resp 18 01/14/22 11:11 BP 123/75 01/14/22 11:11 Pulse Ox 95 01/14/22 11:11 Intake & Output 01/13/22 01/14/22 01/14/22 18:59 06:59 18:59 Intake Total 200 200 Balance 200 200 Intake: Intake, IV Titration 200 200 Amount Ampicillin-Sulbactam 3 gm 200 200 In Sodium Chloride 0.9% 100 ml @ 200 mls/hr IVPB Q6HR [facility] Rx#:[id number] Other: Voiding Method Toilet Toilet # Voids 2 - Exam GENERAL DESCRIPTION: An elderly female lying in bed in no distress RESPIRATORY SYSTEM: Unlabored breathing , decreased breath sounds at bases HEART: S1 S2 regular rate and rhythm , ABDOMEN: Soft , no tenderness EXTREMITIES: Left forearm wound is dressed no drainage with dressings surrounding redness has decreased - Labs CBC & Chem 7: 01/12/22 06:32 01/12/22 06:32 Labs: Microbiology - Last 24 Hours (Table) 01/11/22 08:30 Blood Culture - Preliminary Blood No Growth after 72 hours 01/11/22 08:45 Blood Culture - Preliminary Blood No Growth after 72 hours 01/11/22 08:41 Anaerobic Culture - Preliminary Arm - Left Assessment and Plan (1) Cellulitis Current Visit: Yes Status: Acute Code(s): L03.90 - CELLULITIS, UNSPECIFIED SNOMED Code(s): 213678055 (2) Dog bite Current Visit: Yes Status: Acute Code(s): W54.0XXA - BITTEN BY DOG, INITIAL ENCOUNTER SNOMED Code(s): 143107380 Plan: 1patient with left forearm dog bite cellulitis in this patient was in the hospital a slight worsening of swelling and redness to the left forearm which is mostly bruising possible related to the trauma rather than worsening cellulitis as the patient not running a fever and white count is normal. Patient blood culture negative and local cultures are negative as well 2patient to continue with Unasyn 3 g every 6 hours with a plan to finish therapy with oral Augmentin Time with Patient: Less than 30
[2022-01-15 03:47] VITALS: TEMP 97.9
[2022-01-15] MEDS: AMPICILLIN-SULBACTAM 3 GM in SODIUM CHLORIDE 0.9% 100 ML IVPB SCH ×2 (05:39→11:19)
[2022-01-15] MEDS: LEVOTHYROXINE 50 MCG TAB PO SCH (05:40)
[2022-01-15] MEDS: LENALIDOMIDE 20 MG PO SCH (07:08)
[2022-01-15] MEDS: MAGNESIUM OXIDE 400 MG TAB PO SCH (07:08)
[2022-01-15] MEDS: ASPIRIN 81 MG PO SCH (07:08)
[2022-01-15] MEDS: ACETAMINOPHEN TAB 325 MG TAB PO PRN ×2 (07:14→13:46)
[2022-01-15 07:46] VITALS: BP 129/74; PULSE 63; RESP 16
[2022-01-15 09:03] LABS: Basophils # (A) 0.05 X 10*3/uL (0.00-0.10); Basophils % (A) 1.3 %; Eosinophils # (A) 0.42 X 10*3/uL (0.04-0.35); Eosinophils % (A) 10.5 %; HCT 39.2 % (37.2-46.3); HGB 12.8 g/dL (12.0-15.0); Immature Grans, Automated 0.8 %; Lymphocytes # (A) 0.39 X 10*3/uL (0.90-5.00); Lymphocytes % (A) 9.8 %; MCH 29.2 pg (27.0-32.0); MCHC 32.7 g/dL (32.0-37.0); MCV 89.5 fL (80.0-97.0); Mean Platelet Volume 9.6 fL (9.5-12.2); Monocytes # (A) 0.52 X 10*3/uL (0.20-1.00); NRBC Per 100 WBC 0 /100 WBCS (0.0-0.0); Neutrophils # (A) 2.58 X 10*3/uL (1.80-7.70); Neutrophils % (A) 64.6 %; Platelet Count 123 X 10*3/uL (140-440); RBC 4.38 X 10*6/uL (4.10-5.20); RDW 14.5 % (11.5-14.5); WBC 3.99 X 10*3/uL (4.50-10.00)
[2022-01-15 09:42] LABS: BUN/Creat Ratio 21.75 Ratio (12.00-20.00); Blood Urea Nitrogen 17.4 mg/dL (9.0-27.0); C Reactive Protein <0.30 mg/dL (0.00-0.80); Calcium 8.7 mg/dL (8.7-10.3); Chloride 107 mmol/L (96-109); Glucose 95 mg/dL (70-110); Non-African American GFR(CKD) 71.6 (60.0-200.0); Potassium 4.3 mmol/L (3.5-5.5); Sodium 140 mmol/L (135-145)
--- NOTE | 2022-01-15 11:41 | P.PN ---
Subjective Progress Note Date: 01/15/22 Principal diagnosis: Dog bite. Lymphoma. In follow-up today patient is reporting less pain in the arm, it has been dressed this morning she denied any unusual drainage, the redness that was previously outlined on her forearm is decreasing. No fevers. Objective - Vital Signs Vital signs: Vital Signs Temp 97.9 F 01/15/22 01:49 Pulse 63 01/15/22 07:45 Resp 16 01/15/22 07:45 BP 129/74 01/15/22 07:45 Pulse Ox 95 01/15/22 07:45 Intake & Output 01/14/22 01/15/22 01/15/22 18:59 06:59 18:59 Other: Voiding Method Toilet # Voids 2 2 - Constitutional General appearance: Present: average body habitus, cooperative, no acute distress - EENT Eyes: Present: anicteric sclerae, EOMI ENT: Present: hearing grossly normal - Respiratory Details: Respirations even and unlabored - Peripheral edema leg Peripheral Edema: bilateral: None - Integumentary Integumentary Comment(s): Left forearm is wrapped, there were lines drawn around the redness, no redness in those areas, appears to be more bruised, not warm to the touch. - Neurologic Neurologic: Present: CNII-XII intact (Grossly) - Psychiatric Psychiatric: Present: A&O x's 3, appropriate affect, intact judgment & insight - Labs CBC & Chem 7: 01/15/22 03:16 01/15/22 03:16 Labs: Abnormal Lab Results - Last 24 Hours (Table) 01/15/22 01/15/22 Range/Units 03:16 03:16 WBC 3.99 L (4.50-10.00) X 10*3/uL Plt Count 123 L (140-440) X 10*3/uL Lymphocytes # 0.39 L (0.90-5.00) X 10*3/uL Eosinophils # 0.42 H (0.04-0.35) X 10*3/uL BUN/Creatinine Ratio 21.75 H (12.00-20.00) Ratio Microbiology - Last 24 Hours (Table) 01/11/22 08:45 Blood Culture - Preliminary Blood No Growth after 96 hours 01/11/22 08:30 Blood Culture - Preliminary Blood No Growth after 96 hours Assessment and Plan (1) Dog bite Current Visit: Yes Status: Acute Priority: High Code(s): W54.0XXA - BITTEN BY DOG, INITIAL ENCOUNTER SNOMED Code(s): 279207571 (2) Lymphoma Current Visit: Yes Status: Acute Priority: High Code(s): C85.90 - NON- HODGKIN LYMPHOMA, UNSPECIFIED, UNSPECIFIED SITE SNOMED Code(s): 401516984 Plan: In follow-up today, dog bite appears to be improving with antibiotics. Agree with current treatment plan. ID is following. Continue Revlimid. Will confirm if plan is to go ahead with IV therapy for lymphoma this or delay until abx complete. CBC and CMP are stable.
--- NOTE | 2022-01-17 14:20 | P.DS ---
Providers Date of admission: 01/13/22 09:48 Expected date of discharge: 01/15/22 Attending physician: Brennon Galindo MD Consults: 01/11/22 08:16 Consult Physician Routine Consulting Provider: Adelfo Harris Consult Reason/Comments: lymphoma on maintenance therapy Do you want consulting provider notified?: Yes 01/11/22 09:26 Consult Physician Routine Consulting Provider: Kedar Tran Consult Reason/Comments: dog bite, failed outpatient treatment Do you want consulting provider notified?: Yes Primary care physician: [facility] Course: Final diagnosis Left forearm cellulitis status post dog bite Hyperlipidemia Hypothyroidism Lymphoma Gastroesophageal reflux disease DVT prophylaxis Full code Discharge disposition Patient is being discharged in a stable condition with guarded prognosis to home. Patient will follow with Dr. Prasad in the outpatient setting upon discharge. Patient is also scheduled to follow-up with infectious disease in one week. Patient will continue on oral Augmentin twice daily for the next 10 days. Total time taken is greater than 35 minutes. Hospital course This is a 76-year-old female who was recently admitted with recent dog bite and was being closely monitored. Patient initially went to urgent care and started on antibiotics although the swelling and redness and pain increased in patient is on to the emergency department for further evaluation. Infectious disease following closely and patient was maintained on IV antibiotics in the form of Unasyn with improvement and infectious disease recommending outpatient follow-up and continue on oral Augmentin twice daily for the next 10 days. Patient to continue with local wound care and elevating the extremity while at rest. Patient feeling significantly better and requesting to go home. Patient reports to having full range of motion of the left hand and reports to improvement in swelling and redness. Currently no reports of chest pain, shortness of breath, or palpitations. Patient is afebrile. No reports of nausea or vomiting and patient is tolerating diet. She will be discharged home today and encourage the patient to follow-up with primary care provider along with infectious disease as scheduled. Patient with history of lymphoma and will follow-up with oncology outpatient as well. Physical exam: GENERAL: The patient is alert and oriented x3. Well developed, well nourished. HEENT: Pupils are round and equally reacting to light. EOMI. No scleral icterus. No conjunctival pallor. Normocephalic, atraumatic. No pharyngeal erythema. No thyromegaly. CARDIOVASCULAR: S1 and S2 muffled PULMONARY: Chest is clear to auscultation, no wheezing or crackles. ABDOMEN: Soft, nontender, nondistended, normoactive bowel sounds. No palpable organomegaly. MUSCULOSKELETAL: No joint swelling or deformity. EXTREMITIES: No cyanosis, clubbing, or pedal edema. NEUROLOGICAL: Gross neurological examination did not reveal any focal deficits. SKIN: No rashes. Please refer to medication reconciliation sheet for a list of medications. The impression and plan of care has been dictated by Pennie De Leon, Nurse Practitioner as directed. Dr. Lamont MD I have performed a history and examination and MDM of this patient, discussed the same with the dictator, and agree with the dictator's assessment and plan as written ,documented as a scribe. Based on total visit time, I have performed more than 50% of the visit. Patient Condition at Discharge: Stable Plan - Discharge Summary Discharge Rx Participant: No New Discharge Prescriptions: New Acetaminophen Tab [Tylenol] 325 mg PO Q6HR PRN tab PRN Reason: Fever And/ Or Pain Continue Levothyroxine Sodium [Synthroid] 50 mcg PO DAILY Omeprazole 20 mg PO Q48H Denosumab [Prolia] 60 mg SQ Q180D Biotin 5 mg PO DAILY Aspirin EC [Ecotrin Low Dose] 81 mg PO DAILY Amoxic-Pot Clav 875-125Mg [Augmentin 875-125] 1 tab PO Q12HR 10 Days #20 tab Magnesium Oxide 400 mg PO DAILY Clobetasol Propionate [Clobex .05% Shampoo] 1 applic TOPICAL Q96H Lenalidomide [Revlimid] 20 mg PO DAILY Discharge Medication List Levothyroxine Sodium [Synthroid] 50 mcg PO DAILY 01/09/16 [History] Omeprazole 20 mg PO Q48H 01/09/16 [History] Denosumab [Prolia] 60 mg SQ Q180D 03/14/16 [History] Aspirin EC [Ecotrin Low Dose] 81 mg PO DAILY 01/11/22 [History] Biotin 5 mg PO DAILY 01/11/22 [History] Clobetasol Propionate [Clobex .05% Shampoo] 1 applic TOPICAL Q96H 01/11/22 [History] Lenalidomide [Revlimid] 20 mg PO DAILY 01/11/22 [History] Magnesium Oxide 400 mg PO DAILY 01/11/22 [History] Acetaminophen Tab [Tylenol] 325 mg PO Q6HR PRN tab 01/15/22 [Rx] Amoxic-Pot Clav 875-125Mg [Augmentin 875-125] 1 tab PO Q12HR 10 Days #20 tab 01/15/22 [Rx] Follow up Appointment(s)/Referral(s): Jeff Prasad DO [Primary Care Provider] - 01/24/22 9:45 am Kedar Tran MD [STAFF PHYSICIAN] - 01/22/22 3:15 pm (Behind [facility] in same building as Dr Jones. Bring photo ID and insurance information and wear a mask) Activity/Diet/Wound Care/Special Instructions: Activity Limited until follow-up Follow-up with primary care provider on discharge Follow-up with infectious disease outpatient Continue taking antibiotics until finished Continue local wound care as described and discussed Elevate the extremity while at rest Discharge Disposition: HOME SELF-CARE
== END 2022-01-15 15:03 | disposition home or self-care (01) | DRG 603 ==
LOC: EC 07:41 → 5NMEDONC 09:33 → OBSVTOIN 01-13 09:48 → 4SSUR 01-14 17:40
PROVIDERS: ADMIT Internal Medicine; ATTEND Internal Medicine
DX: L03.114 Cellulitis of left upper limb (principal); C82.90 Follicular lymphoma, unspecified, unspecified site; J90 Pleural effusion, not elsewhere classified; E03.9 Hypothyroidism, unspecified; E78.5 Hyperlipidemia, unspecified; K21.9 Gastro-esophageal reflux disease without esophagitis; M81.0 Age-related osteoporosis without current pathological fracture; K57.90 Diverticulosis of intestine, part unspecified, without perforation or abscess without bleeding; S50.812A Abrasion of left forearm, initial encounter; K29.70 Gastritis, unspecified, without bleeding; M19.041 Primary osteoarthritis, right hand; M19.042 Primary osteoarthritis, left hand; S51.852A Open bite of left forearm, initial encounter; W54.0XXA Bitten by dog, initial encounter; Z79.82 Long term (current) use of aspirin; Z79.890 Hormone replacement therapy; Z79.899 Other long term (current) drug therapy; Z80.49 Family history of malignant neoplasm of other genital organs; Z87.442 Personal history of urinary calculi; Z87.891 Personal history of nicotine dependence; Z96.1 Presence of intraocular lens; Z96.651 Presence of right artificial knee joint; Z87.19 Personal history of other diseases of the digestive system; Z98.42 Cataract extraction status, left eye; Z98.41 Cataract extraction status, right eye; Z98.51 Tubal ligation status; Z88.1 Allergy status to other antibiotic agents
CPT/HCPCS: 36415; 80048; 80053; 84145; 85025; 86140; 87040; 87070; 87075; 87205; 96365; 96367; 99284

== ENCOUNTER → 2022-06-20 | Outpatient (CLI) | payer MEDICARE, OTHER ==
--- NOTE | 2022-06-20 12:08 | CT ---
EXAMINATION TYPE: CT abdomen w con DATE OF EXAM: 06/20/2022 COMPARISON: None. There are no ultrasounds at this location. INDICATION: Liver mass, spot on kidney by ultrasound per patient DLP: 872 mGycm, Automated exposure control for dose reduction was used. CONTRAST: 70 mL of Isovue 300. Study performed with Oral Contrast TECHNIQUE: Axial images were obtained from above the diaphragm to the pubic rami in the axial plane a t 5 mm thick sections. Reconstructed images are reviewed on the computer in the coronal plane. FINDINGS: Limited CT sections are obtained the lung bases. Minimal compressive atelectasis within the right po sterior lung base is present.. CT ABDOMEN: Liver: Very faint hypodensities in the periphery of the right mid lobe of the liver. Series 3 image 2 7. This is too small to classify. This is less well visualized on delayed images. Spleen: Normal Pancreas: Normal Adrenal glands: The adrenal glands are normal. Gallbladder: Calcified gallstones present. Kidneys: No masses are evident. No hydronephrosis is present. There is a cyst on the posterior medi al left mid kidney. Punctate calcifications without obstruction may be present within the left kidney . There is a large coarse calcification in the inferior pole right kidney measuring 1.0 cm. Delayed images were obtained. Aorta: Vascular calcification is within the aorta. Inferior vena cava: Normal. Loops of bowel within the abdomen and pelvis are normal. There are loops of bowel which are incom pletely distended or lack oral contrast limiting their evaluation. IMPRESSIONS: 1. Bilateral nonobstructing renal stones. The larger is at the inferior pole right kidney. 2. Minimal ill-defined hypodensity lateral right lobe liver is nonspecific. Follow-up exam can be per formed as clinically indicated
== END | disposition home or self-care (01) ==
LOC: RADCTMAIN 06:58
PROVIDERS: ATTEND Internal Medicine Hematology & Oncology
DX: C85.98 Non-Hodgkin lymphoma, unspecified, lymph nodes of multiple sites (principal); N20.0 Calculus of kidney
CPT/HCPCS: 82565; 84520; 74160; 36415; Q9967 ×2

== ENCOUNTER → 2022-08-21 | Outpatient (CLI) | payer MEDICARE, OTHER ==
[~2022-08-21] MED LIST changes: +DENOSUMAB 60 MG/ML 1 ML SYRINGE SQ ONE; -TIXAGEVIMAB/CILGAVIMAB (EUA) 300 MG/3 ML COMBO.PKG IM NR
[2022-08-21 11:10] VITALS: BP 146/88; PULSE 74; RESP 16; TEMP 97.5
== END ==
LOC: PROCWHC3 11:02
PROVIDERS: ATTEND Family Medicine
DX: M81.0 Age-related osteoporosis without current pathological fracture (principal); Z87.891 Personal history of nicotine dependence; Z88.8 Allergy status to other drugs, medicaments and biological substances
CPT/HCPCS: 96372; J0897

== ENCOUNTER → 2023-03-01 | Outpatient (CLI) | payer MEDICARE, OTHER ==
[~2023-03-01] MED LIST changes: +DENOSUMAB 60 MG/ML 1 ML SYRINGE SQ NR; -DENOSUMAB 60 MG/ML 1 ML SYRINGE SQ ONE
[2023-03-01 13:48] VITALS: BP 103/67; PULSE 85; RESP 16; TEMP 98
== END ==
LOC: PROCWHC3 13:28
PROVIDERS: ATTEND Family Medicine
DX: M81.0 Age-related osteoporosis without current pathological fracture (principal)
CPT/HCPCS: 96372; J0897

== ENCOUNTER → 2023-10-18 | Outpatient (CLI) | payer MEDICARE, OTHER ==
[2023-10-18 15:30] VITALS: BP 119/72; PULSE 82; RESP 16; TEMP 98.1
== END ==
LOC: PROCWHC3 13:33
PROVIDERS: ATTEND Family Medicine
DX: M81.0 Age-related osteoporosis without current pathological fracture (principal)
CPT/HCPCS: 96372; J0897

== ENCOUNTER → 2024-04-27 | Outpatient (CLI) | payer MEDICARE, OTHER ==
[2024-04-27 13:10] VITALS: BP 137/79; PULSE 55; RESP 16; TEMP 97.4
[2024-04-27] MEDS: DENOSUMAB 60 MG/ML 1 ML SYRINGE SQ NR (13:10)
== END ==
LOC: PROCWHC3 12:58
PROVIDERS: ATTEND Family Medicine
DX: M81.0 Age-related osteoporosis without current pathological fracture (principal)
CPT/HCPCS: 96372; J0897

== ENCOUNTER → 2024-10-29 | Outpatient (CLI) | payer MEDICARE, OTHER ==
[2024-10-29 14:41] VITALS: BP 124/69; PULSE 45; RESP 18; TEMP 97.6
[2024-10-29] MEDS: DENOSUMAB 60 MG/ML 1 ML SYRINGE SQ NR (14:47)
== END ==
LOC: PROCWHC3 14:31
PROVIDERS: ATTEND Family Medicine
DX: M81.0 Age-related osteoporosis without current pathological fracture (principal)
CPT/HCPCS: 96372; J0897